=== PATIENT | female | born 1955 | race Caucasian/White ===

== ENCOUNTER → 2020-11-08 | Outpatient (CLI) | payer OTHER ==
[~2020-11-08] MED LIST: ALPRAZOLAM 0.0.25 M1 PO; CALCIUM 600 +1 EAC1 PO; CYMBALTA60 MG PO; DETROL LA4 MG PO; PERCOCET 5-3251 EACH PO; SIMVASTATIN40 MG PO; SYNTHROID88 MCG PO; VITAMIN D1000 UNI1 PO; ZYRTEC 10 MG TA10 MG PO
== END ==
LOC: CAT 14:14
PROVIDERS: ATTEND Internal Medicine Cardiovascular Disease
DX: Z13.6 Encounter for screening for cardiovascular disorders (principal); I25.10 Atherosclerotic heart disease of native coronary artery without angina pectoris; E78.00 Pure hypercholesterolemia, unspecified

== ENCOUNTER → 2020-11-25 | Outpatient (CLI) | payer BC, OTHER | LOC: SJCVCIMAG 07:29 | PROVIDERS: ATTEND Internal Medicine Cardiovascular Disease | DX: R00.0 Tachycardia, unspecified (principal); I10 Essential (primary) hypertension; E78.5 Hyperlipidemia, unspecified; R06.00 Dyspnea, unspecified; Z85.118 Personal history of other malignant neoplasm of bronchus and lung; Z01.810 Encounter for preprocedural cardiovascular examination; Z79.899 Other long term (current) drug therapy; Z85.3 Personal history of malignant neoplasm of breast ==